=== PATIENT | male | born 1985 | race Caucasian/White ===

== ENCOUNTER 2016-07-22 21:42 | Emergency (ER) | payer MEDICAID, OTHER ==
[~2016-07-22] VITALS: Ht 182.9 cm; Wt 82.0 kg
[2016-07-22] MEDS ORDERED: MORPHINE SULFATE 4 MG/ML CPJ (NOT FOR IM USE) IV STA (23:44)
[2016-07-22] MEDS ORDERED: ONDANSETRON HCL 4MG/2ML VIAL IV STA (23:44)
[2016-07-22] MEDS ORDERED: ACETAMINOPHEN 325MG TABLET PO STA (23:44)
[2016-07-22] MEDS ORDERED: SODIUM CHLORIDE 0.9% 1000ML BAG (SEPSIS BOLUS) IV ONE (23:45)
[2016-07-22] MEDS ORDERED: PIPERACILLIN/TAZ 3.375G PREMIX 50 ML IV ONE (23:45)
[2016-07-22 23:58] LABS: BASOPHILS % 0.2 % (0.0-2.0); EOSINOPHILS % 1.7 % (0.0-5.0); HEMATOCRIT. 39.4 % (42.0-52.0); HEMOGLOBIN. 13.3 g/dL (14.0-18.0); LYMPHOCYTES % 19.3 % (20.0-50.0); MEAN CORPUSCULAR HEMOGLOBIN 28.2 pg (28.0-32.0); MEAN CORPUSCULAR VOLUME 83.2 fL (80.0-94.0); MEAN PLATELET VOLUME 8.5 fl (7.4-10.4); MONOCYTES % 6.7 % (2.0-8.0); NEUTROPHILS % 72.1 % (40.0-76.0); PLATELET 165 x1000/uL (130-400); RED BLOOD CELL COUNT 4.73 mill/uL (4.7-6.1); RED CELL DISTRIBUTION WIDTH 17.5 % (11.6-14.6)
[2016-07-23 00:03] LABS: CHLORIDE 105 mEq/L (98-107)
[2016-07-23 00:12] LABS: CARBON DIOXIDE 28 mEq/L (21-32)
[2016-07-23 00:22] LABS: CLARITY URINE TURBID (CLEAR); COLOR URINE YELLOW (YELLOW); GLUCOSE URINE NEGATIVE (NEGATIVE); KETONES URINE NEGATIVE (NEGATIVE); LEUKOCYTE ESTERASE URINE 3+ (NEGATIVE); NITRITE URINE NEGATIVE (NEGATIVE); OCCULT BLOOD URINE 1+ (NEGATIVE); PH URINE 7.5 (4.5-8.0); PROTEIN URINE 1+ (NEGATIVE); SPECIFIC GRAVITY URINE 1.018 (1.005-1.030); UROBILINOGEN URINE 0.2 E.U./dL (0.2-1.0)
[2016-07-23 02:13] VITALS: BP 114/71
== END 2016-07-23 02:18 | disposition left against medical advice (07) ==
LOC: ER 22:48 → EDBEDREQ 07-23 01:11 → EDBEDREQTM 07-23 01:11 → ER 07-23 02:18 → ENRESERV 07-23 02:26 → CANRESERV 07-23 02:26 → CANBEDREQ 07-23 16:23
DX: N39.0 Urinary tract infection, site not specified (principal); R50.9 Fever, unspecified; M79.605 Pain in left leg; F12.10 Cannabis abuse, uncomplicated; Z93.3 Colostomy status
CPT/HCPCS: 36415; 71010; 80053; 81001; 83605; 85025; 87040; 87077; 87086; 87186; 96365; 96375; 99285; J2270; J2405; J2543; J7030; Z7610

== ENCOUNTER 2016-12-30 22:01 | Emergency (ER) | payer OTHER ==
[~2016-12-30] VITALS: Ht 182.9 cm; Wt 82.0 kg
[2016-12-31] MEDS ORDERED: KETOROLAC 30MG/ML VIAL IV STA (00:52)
[2016-12-31 02:44] LABS: CLARITY URINE TURBID (CLEAR); COLOR URINE YELLOW (YELLOW); GLUCOSE URINE NEGATIVE (NEGATIVE); KETONES URINE NEGATIVE (NEGATIVE); LEUKOCYTE ESTERASE URINE 3+ (NEGATIVE); NITRITE URINE POSITIVE (NEGATIVE); OCCULT BLOOD URINE 1+ (NEGATIVE); PH URINE 5.5 (4.5-8.0); PROTEIN URINE 1+ (NEGATIVE); SPECIFIC GRAVITY URINE 1.019 (1.005-1.030); UROBILINOGEN URINE 0.2 E.U./dL (0.2-1.0)
[2016-12-31 04:58] VITALS: BP 122/83
== END 2016-12-31 04:59 | disposition home or self-care (01) ==
LOC: ER 22:40
DX: S29.012A Strain of muscle and tendon of back wall of thorax, initial encounter (principal); S09.90XA Unspecified injury of head, initial encounter; F17.200 Nicotine dependence, unspecified, uncomplicated; Z89.611 Acquired absence of right leg above knee; Z98.890 Other specified postprocedural states; V49.49XA Driver injured in collision with other motor vehicles in traffic accident, initial encounter; Y93.89 Activity, other specified; Y99.8 Other external cause status; Y92.410 Unspecified street and highway as the place of occurrence of the external cause
CPT/HCPCS: 70450; 72040; 72070; 72100; 81001; 96374; 99285; J1885; Z7610

== ENCOUNTER 2018-12-23 02:14 | Emergency (ER) | payer MEDICAID, OTHER ==
[~2018-12-23] VITALS: Ht 180.3 cm; Wt 105.0 kg
[2018-12-23 03:33] VITALS: BP 133/70
== END 2018-12-23 04:50 | disposition left against medical advice (07) ==
LOC: ER 02:47
DX: Z53.21 Procedure and treatment not carried out due to patient leaving prior to being seen by health care provider (principal)